=== PATIENT | male | born 2000 | race Caucasian/White ===

== ENCOUNTER 2022-08-13 17:40 | Emergency (ER) | payer OTHER, SELFPAY ==
[2022-08-13 18:08] VITALS: BP 129/66; PULSE 67; RESP 20; TEMP 36.8; O2SAT 100; BMI 25.8
[2022-08-13 19:26] VITALS: BP 129/66; PULSE 67; RESP 20; TEMP 36.8
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
== END 2022-08-13 19:28 | disposition home or self-care (01) ==
LOC: ED 19:26
PROVIDERS: Emergency Provider Emergency Medicine
DX: S01.411A Laceration without foreign body of right cheek and temporomandibular area, initial encounter (principal); W50.0XXA Accidental hit or strike by another person, initial encounter
CPT/HCPCS: 12011; 99283